=== PATIENT | female | born 1955 | race Caucasian/White ===

== ENCOUNTER → 2018-01-14 | Outpatient (CLI) | payer MEDICAID ==
[~2018-01-14] MED LIST: ASPI-496 PO; ATEN50TA41 PO; ATOR20TA9 PO; CLOP75TA PO; FENO160T PO; FURO20TA3 PO; GABA300C10 PO; GABA600T2 PO; INSU100V8 SQ; IRON PO; ISOS30TA8 PO; LISI-167 PO; LISI1TAB7 PO; METF10002 PO; OMEP-110 PO; ONDA4TAB13 SL; POTA10CA PO; VENL75CA6 PO
== END | disposition home or self-care (01) ==
LOC: CFH 10:55
PROVIDERS: ATTEND Psychiatry & Neurology Neurology
DX: I65.23 Occlusion and stenosis of bilateral carotid arteries (principal); E11.9 Type 2 diabetes mellitus without complications
CPT/HCPCS: 93880

== ENCOUNTER → 2019-06-10 | Outpatient (CLI) | payer MEDICARE, MEDICAID ==
[~2019-06-10] MED LIST changes: +ATOR20TA37 PO; -ATOR20TA9 PO; -GABA600T2 PO; +GABA600T7 PO; +LISI1TAB20 PO; -LISI1TAB7 PO
== END | disposition home or self-care (01) ==
LOC: CFH 10:56
PROVIDERS: ATTEND Psychiatry & Neurology Neurology
DX: I65.23 Occlusion and stenosis of bilateral carotid arteries (principal)
CPT/HCPCS: 93880